=== PATIENT | male | born 1950 | race Caucasian/White ===

== ENCOUNTER 2017-04-20 10:35 | Emergency (ER) | payer MEDICARE, OTHER ==
[~2017-04-20] VITALS: Ht 182.9 cm; Wt 111.1 kg
[~2017-04-20 10:35] MED LIST: AMOX1TAB61 PO; ASPI325T8 PO; ATORVASTATIN CA80 MG PO; BACL10TA PO; BUPR75TA6 PO; CARB1TAB47 PO; CITA40TA5 PO; ENTA200T2 PO; FLUT50DI IH; FOSI40TA PO
--- NOTE | 2017-04-20 11:13 | EKG ---
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
[2017-04-20 11:25] LABS: BASO % 0 % (0-3); EOS # 0.1 x10^3/uL (0.0-0.7); EOS % 1 % (0-3); HEMATOCRIT 39.2 % (39.0-53.0); LYMPH # 4.3 x10^3/uL (1.0-4.8); LYMPH % 37 % (24-48); MEAN CORPUSCULAR HEMOGLOBIN 32 pg (25-35); MEAN CORPUSCULAR HGB CONC 33 g/dL (31-37); MEAN CORPUSCULAR VOLUME 95 fL (79-100); MONO # 1.1 x10^3/uL (0.0-1.1); MONO % 10 % (0-9); NEUT % 52 % (31-73); PLATELET COUNT 208 x10^3/uL (140-400); RED BLOOD COUNT 4.12 x10^6/uL (4.30-5.70); RED CELL DISTRIBUTION WIDTH 13.2 % (11.5-14.5); WHITE BLOOD COUNT 11.6 x10^3/uL (4.0-11.0)
[2017-04-20 11:30] LABS: CALCIUM 8.4 mg/dL (8.5-10.1); CREATININE 1.1 mg/dL (0.7-1.3); GFR 66.6; POTASSIUM 3.4 mmol/L (3.5-5.1)
[2017-04-20] MEDS ORDERED: IBUPROFEN 400 MG TABLET. PO ONE (11:30)
--- NOTE | 2017-04-20 11:46 | RAD ---
Pelvis and bilateral hip radiographs History: Recent fall, pain. Comparison: None. Findings: AP view of the pelvis including both hips. Frog-leg view of each hip. 3 total images. No acute fracture or dislocation is identified. Mild bilateral hip degeneration is seen. Impression: No acute osseous traumatic injury identified.
--- NOTE | 2017-04-20 11:48 | RAD ---
Indication back pain. Recent falls. AP and lateral views of the lumbar spine were obtained as well as a coned view targeted to the lumbosacral junction. There is asymmetric compression associated with L1. The chronicity is uncertain but it is new when compared to an examination 07/21/2011. There are are underlying spondylitic changes. There is multilevel disc space narrowing and there are osteophytes additionally noted at multiple levels. Facet degenerative changes are also seen. Mild scoliosis is noted. IMPRESSION Compression deformity L1 the chronicity of which is not certain. Background spondylitic changes in the lumbar spine are additionally noted
--- NOTE | 2017-04-20 12:00 | PHYS DOC ---
Past History Past Medical History: Diabetes, Hypertension, Other Past Surgical History: No Surgical History Alcohol Use: None Drug Use: None Adult General Chief Complaint Chief Complaint: BACK PAIN OR INJURY HPI HPI 67-year-old male presenting the emergency department today with a fall. He has Parkinson's which has progressively gotten worse. Tomorrow they are installing a lift at his house to help with transfers. This was a mechanical fall and not a syncopal episode. His is here with him today. She complains of low back pain. His pain is mild to moderate radiates bilaterally and is without alleviating factors. It is sharp pain. He denies any chest pain or shortness of breath. Review of systems is negative for acute worsening weakness or tingling in the lower extremities. He denies perineal paresthesias or urinary incontinence. He denies fecal incontinence. All other review of systems is negative unless otherwise noted in history of present illness. ED course: 67-year-old gentleman with worsening Parkinson's disease presenting to the emergency department today with low back pain after a mechanical fall. His pain was controlled in the emergency department. X-rays showed compression fracture of the first lumbar vertebra. Acute vs chronic. We'll have him follow up with his primary care doctor. Clinical presentation not suggestive of cauda equina syndrome. is here with him today is comfortable with discharge back home. Potassium was at the lower end of normal. I recommended he eat a high potassium diet. Also recommended he continue trying to push the fluids as his BUN was mildly elevated likely secondary to prerenal dehydration. There was a nonspecific leukocytosis present however no clinical symptomatology of infection. The patient was then discharged home in stable condition to follow up with their primary care physician over the next 2-3 days. They were to return if their symptoms worsened or if they were concerned for any reason. Face -to-face discharge instructions and return precautions were given. Patient's questions were answered to their satisfaction. Patient and is comfortable plan. Review of Systems Review of Systems SEE ABOVE. Current Medications Current Medications Current Medications Medications (Trade) Dose Ordered Sig/Flex Start Time Stop Time Status Last Admin Dose Admin Ibuprofen (Motrin) 400 mg 1X ONCE 04/20/17 11:30 04/20/17 11:31 DC Allergies Allergies Allergies Coded Allergies Type Severity Reaction Last Updated Verified acetaminophen Allergy Unknown 04/27/14 No morphine Allergy Unknown 04/27/14 No oxycodone Allergy Unknown 04/27/14 No Physical Exam Physical Exam Constitutional: Well developed, well nourished, no acute distress, non-toxic appearance. HENT: Normocephalic, atraumatic, bilateral external ears normal, oropharynx moist, no oral exudates, nose normal. [] Eyes: PERRLA, EOMI, conjunctiva normal, no discharge. Neck: Normal range of motion, no tenderness, supple, no stridor. [] Cardiovascular:Heart rate regular rhythm, no murmur [] Lungs & Thorax: Bilateral breath sounds clear to auscultation Abdomen: Bowel sounds normal, soft, no tenderness, no masses, no pulsatile masses. [] Skin: Warm, dry, no erythema, no rash. Back: Mild tenderness along the paraspinal muscular of the low lumbar back., no CVA tenderness. [] Extremities: No tenderness, no cyanosis, no clubbing, ROM intact, no edema. 5 out of 5 strength in his lower extremities. Neurologic: Alert and oriented X 3, normal motor function, normal sensory function, no focal deficits noted. Psychologic: Affect normal, judgement normal, mood normal. [] Current Patient Data Vital Signs Vital Signs Date Time Temp Pulse Resp B/P (MAP) Pulse Ox O2 Delivery O2 Flow Rate FiO2 04/20/17 10:40 98.5 64 18 94 Room Air Lab Results Laboratory Tests Test 04/20/17 11:06 White Blood Count 11.6 x10^3/uL (4.0-11.0) H Red Blood Count 4.12 x10^6/uL (4.30-5.70) L Hemoglobin 13.0 g/dL (13.0-17.5) Hematocrit 39.2 % (39.0-53.0) Mean Corpuscular Volume 95 fL (79-100) Mean Corpuscular Hemoglobin 32 pg (25-35) Mean Corpuscular Hemoglobin Concent 33 g/dL (31-37) Red Cell Distribution Width 13.2 % (11.5-14.5) Platelet Count 208 x10^3/uL (140-400) Neutrophils (%) (Auto) 52 % (31-73) Lymphocytes (%) (Auto) 37 % (24-48) Monocytes (%) (Auto) 10 % (0-9) H Eosinophils (%) (Auto) 1 % (0-3) Basophils (%) (Auto) 0 % (0-3) Neutrophils # (Auto) 6.0 x10^3uL (1.8-7.7) Lymphocytes # (Auto) 4.3 x10^3/uL (1.0-4.8) Monocytes # (Auto) 1.1 x10^3/uL (0.0-1.1) Eosinophils # (Auto) 0.1 x10^3/uL (0.0-0.7) Basophils # (Auto) 0.0 x10^3/uL (0.0-0.2) Sodium Level 143 mmol/L (136-145) Potassium Level 3.4 mmol/L (3.5-5.1) L Chloride Level 104 mmol/L (98-107) Carbon Dioxide Level 33 mmol/L (21-32) H Anion Gap 6 (6-14) Blood Urea Nitrogen 28 mg/dL (8-26) H Creatinine 1.1 mg/dL (0.7-1.3) Estimated GFR (Cockcroft-Gault) 66.6 Glucose Level 100 mg/dL (70-99) H Calcium Level 8.4 mg/dL (8.5-10.1) L EKG EKG [] Radiology/Procedures Radiology/Procedures [] Course & Med Decision Making Course & Med Decision Making Pertinent Labs and Imaging studies reviewed. (See chart for details) [] Dragon Disclaimer Dragon Disclaimer This chart was dictated in whole or in part using Voice Recognition software in a busy, high-work load, and often noisy Emergency Department environment. It may contain unintended and wholly unrecognized errors or omissions. Departure Departure: Impression: Primary Impression: Acute low back pain due to trauma Additional Impressions: Low blood potassium Compression fracture Disposition: 01 HOME, SELF-CARE Condition: STABLE Referrals: KHRIS URIARTE MD (PCP) Patient Instructions: Back Pain, Adult, Potassium Content of Foods Additional Instructions: Thank you for allowing us to participate in your care today. Followup with your primary care physician in 3 days if your symptoms do not improve. If you do not have a primary care provider you can ask for a list of our primary care providers. Return to the emergency department you have any new or concerning findings. This should be evaluated by the primary care physician and any necessary consulting services for continued management within a few days after discharge. Return to emergency room if you have any new or concerning symptoms including but not limited to fever, chills, nausea, vomiting, intractable pain, any new rashes, chest pain, shortness of air, uncontrolled bleeding, difficulty breathing, and/or vision loss. Problem Qualifiers ODETTE JESSICA MD April 20, 2017 12:00
[2017-04-20] MEDS ORDERED: HYDROmorphone PF 1 MG/ML DISP.SYRIN IM ONE (12:20)
[2017-04-20 13:00] VITALS: BP 142/63
== END 2017-04-20 13:25 | disposition home or self-care (01) ==
LOC: ER 10:35
DX: S32.018A Other fracture of first lumbar vertebra, initial encounter for closed fracture (principal); E11.9 Type 2 diabetes mellitus without complications; G20 Parkinson's disease; I10 Essential (primary) hypertension; Z88.5 Allergy status to narcotic agent; Z88.6 Allergy status to analgesic agent; W19.XXXA Unspecified fall, initial encounter; Y93.89 Activity, other specified; Y99.8 Other external cause status; Y92.89 Other specified places as the place of occurrence of the external cause
CPT/HCPCS: 36415; 72100; 73521; 80048; 85027; 93005; 96372; 99285; J1170

== ENCOUNTER → 2017-06-24 | Outpatient (CLI) | payer MEDICARE, OTHER ==
--- NOTE | 2017-06-24 13:29 | RAD ---
Ultrasound testicular/scrotum 06/24/2017 Clinical indication: Scrotal sac itching and erythema. Comparison: None. Findings: Right testis measures 3.6 x 2.1 x 3.0 cm with homogeneous echotexture. Normal color Doppler imaging of the right testicle with pulsatile spectral Doppler demonstrating arterial and venous waveforms. Left testis measures 2.6 x 1.9 x 4.0 cm with homogeneous echotexture and normal color Doppler imaging. Pulse spectral Doppler analysis demonstrates normal arterial and venous waveforms. Right epididymis normal in appearance. Left epididymis normal in appearance. Impression: Normal testicular sonogram.
== END | disposition home or self-care (01) ==
LOC: US 12:32
PROVIDERS: ATTEND Family Medicine
DX: N50.89 Other specified disorders of the male genital organs (principal); L29.1 Pruritus scroti; L53.8 Other specified erythematous conditions
CPT/HCPCS: 76870

== ENCOUNTER → 2018-02-25 | Outpatient (CLI) | payer MEDICARE, OTHER ==
--- NOTE | 2018-02-26 10:30 | RAD ---
Three-view study of the lumbar spine Clinical indications: Back pain. Comparison: April 20, 2017. Findings: Chronic moderate compression fracture of L1 is seen which is stable. No acute compression fracture or discitis or osteolytic process or anterolisthesis is seen. Dextroscoliosis is seen. There is degenerative endplate spurring and disc space narrowing throughout the lumbar spine. Degenerative facet arthropathy is seen throughout the lumbar spine. IMPRESSION: Stable chronic compression fracture of L1. No new compression fracture is evident.
--- NOTE | 2018-02-26 10:33 | RAD ---
AP view of the pelvis and two-view study of the right hip History: Right hip pain. Pelvic pain. Findings: No acute fracture or dislocation or osteolytic process is seen. No significant arthritic change of the right hip joint is seen. There is a small exostosis of the right femoral neck seen in the frog-leg view. This may be seen with femoral acetabular impingement. IMPRESSION: No acute fracture. See discussion above.
== END | disposition home or self-care (01) ==
LOC: DXRAD 16:00
PROVIDERS: ATTEND Family Medicine
DX: M48.56XD Collapsed vertebra, not elsewhere classified, lumbar region, subsequent encounter for fracture with routine healing (principal); M48.061 Spinal stenosis, lumbar region without neurogenic claudication; M25.551 Pain in right hip
CPT/HCPCS: 72100; 73502

== ENCOUNTER → 2018-03-24 | Outpatient (CLI) | payer MEDICARE, OTHER ==
[~2018-03-24] MED LIST changes: +BUPIVACAINE MPF 0.25% 10 ML VIAL. ONE; +LIDOCAINE 1% PF 30 ML VIAL. ONE
== END | disposition home or self-care (01) ==
LOC: SURG 10:43
PROVIDERS: ATTEND Anesthesiology Pain Medicine
DX: M79.1 Myalgia (principal); M19.90 Unspecified osteoarthritis, unspecified site; K21.9 Gastro-esophageal reflux disease without esophagitis; I10 Essential (primary) hypertension; Z87.39 Personal history of other diseases of the musculoskeletal system and connective tissue
CPT/HCPCS: 20552; J2001; J3490

== ENCOUNTER 2018-08-19 13:34 | Emergency (ER) | payer MEDICARE, OTHER ==
[~2018-08-19 13:34] MED LIST changes: -BUPIVACAINE MPF 0.25% 10 ML VIAL. ONE; -FOSI40TA PO; +FOSI40TA3 PO; -LIDOCAINE 1% PF 30 ML VIAL. ONE
--- NOTE | 2018-08-19 14:23 | PHYS DOC ---
Past History Past Medical History: Diabetes, Hypertension, Other Past Surgical History: No Surgical History Alcohol Use: None Drug Use: None Adult General Chief Complaint Chief Complaint: DIZZY/LIGHT HEADED [facility] HPI 68-year-old male presents the emergency department with multiple complaints. He states that he "just was not feeling well" this morning when he woke up. They had the plan to go to [facility] but he said that he was not feeling well enough. His states that he had multiple episodes of crying spells. He states also that he felt like his shoulders were about to fall off of his body. He then started to feel better and when he got to [facility] he made mention of feeling anxious. When I ask him very directly denies any lightheadedness or room spinning sensation. He denies any headache currently. His does state [facility] why there were 6 boxes of fans on the floor- the states that there was only one fan on the floor that they were looking at buying. While obtaining history from the patient he had about 3 episodes of intense crying. states that this started today. She states that she believes this is because he was given bad news by his neurologist, with respect to his Parkinson's. He was told that his Parkinson's is essentially endstage. Review of Systems Review of Systems Constitutional: Denies fever or chills [] Eyes: Denies change in visual acuity, redness, or eye pain [] HENT: Denies nasal congestion or sore throat [] Respiratory: Denies cough or shortness of breath [] Cardiovascular: No additional information not addressed in HPI [] GI: Denies abdominal pain, nausea, vomiting, bloody stools or diarrhea [] : Denies dysuria or hematuria [] Musculoskeletal: Denies back pain or joint pain [] Integument: Denies rash or skin lesions [] Neurologic: Denies headache, focal weakness or sensory changes [] Endocrine: Denies polyuria or polydipsia [] All other systems were reviewed and found to be within normal limits, except as documented in this note. Allergies Allergies Allergies Coded Allergies Type Severity Reaction Last Updated Verified acetaminophen Allergy Unknown 04/27/14 No morphine Allergy Unknown 04/27/14 No oxycodone Allergy Unknown 04/27/14 No Physical Exam Physical Exam GENERAL: Awake, alert, well appearing, nontoxic HEAD/NECK/EYES: Normocephalic, Neck supple, PERRL ENT Airway patent, mucous membranes moist RESP: Nontachypneic, no respiratory distress, normal breath sounds bilaterally CV: Regular rhythm, normal perfusion ABD/GI: Soft, non-tender, no guarding, no rebound, no palpable pulsatile mass BACK: Inspection NL EXT: Neurovascularly intact, no deformities SKIN: Warm, dry NEURO: Oriented X3, no motor deficits, no sensory deficits, CN II - XII intact, parkinsonian facies PSYCH: Cooperative, appropriate affect, but there are intermittent bouts of tearfulness Current Patient Data Vital Signs Vital Signs Date Time Temp Pulse Resp B/P (MAP) Pulse Ox O2 Delivery O2 Flow Rate FiO2 08/19/18 13:54 98.7 69 20 96 Room Air EKG EKG [] Radiology/Procedures Radiology/Procedures [] Course & Med Decision Making Course & Med Decision Making Pertinent Labs and Imaging studies reviewed. (See chart for details) 3:44 PM. Patient has been asymptomatic outside of episodes of tearfulness. From an emergency department standpoint, he is stable for discharge. I do not suspect any serious bacterial illness, acute ischemic issue or any significant dehydration cannot be treated at home with an increase in oral fluids. His BUNs was mildly elevated and so I did discuss this with his and advised him to drink increased amount of fluids for the next 36 hours. He is currently asymptomatic and stable for discharge. Dragon Disclaimer Dragon Disclaimer This electronic medical record was generated, in whole or in part, using a voice recognition dictation system. Departure Departure: Impression: Primary Impression: Visual hallucination Additional Impressions: Transient alteration of awareness Feeling anxious Disposition: 01 HOME, SELF-CARE Condition: STABLE Referrals: LEXIS AVILA MD (PCP) Problem Qualifiers MAYA SOMERS DO Aug 19, 2018 14:23
[2018-08-19 14:39] LABS: BASO # 0.1 x10^3/uL (0.0-0.2); BASO % 1 % (0-3); EOS # 0.1 x10^3/uL (0.0-0.7); EOS % 1 % (0-3); HEMATOCRIT 40.1 % (39.0-53.0); HEMOGLOBIN 13.5 g/dL (13.0-17.5); LYMPH % 50 % (24-48); MEAN CORPUSCULAR HEMOGLOBIN 32 pg (25-35); MEAN CORPUSCULAR HGB CONC 34 g/dL (31-37); MEAN CORPUSCULAR VOLUME 95 fL (79-100); MONO # 1.1 x10^3/uL (0.0-1.1); MONO % 9 % (0-9); NEUT # 4.7 x10^3uL (1.8-7.7); NEUT % 39 % (31-73); PLATELET COUNT 269 x10^3/uL (140-400); RED BLOOD COUNT 4.23 x10^6/uL (4.30-5.70); RED CELL DISTRIBUTION WIDTH 13.5 % (11.5-14.5)
--- NOTE | 2018-08-19 14:46 | RAD ---
CT HEAD INDICATION: ALTERED MENTAL STATUS. HX OF PARKINSON'S DISEASE, FELT LIKE HIS SHOULDERS WERE GOING TO FALL OFF TODAY COMPARISON: None Available. TECHNIQUE: 5 mm contiguous axial images were obtained from the skull base to the vertex in both bone and soft tissue algorithm. Exposure: One or more of the following individualized dose reduction techniques were utilized for this examination: 1. Automated exposure control 2. Adjustment of the mA and/or kV according to patient size 3. Use of iterative reconstruction technique FINDINGS: Examination limited due to positioning the head within the CT gantry. Mild bilateral periventricular white matter hypodensities likely chronic small vessel ischemic disease. No evidence of acute intracranial hemorrhage. No extra-axial fluid collections. No mass effect or midline shift. Ventricular size is appropriate. Basal cisterns are patent. No fractures identified.Bravo-white differentiation is preserved.Globes and orbits are within normal limits. Paranasal sinuses and mastoid air cells are clear. IMPRESSION: No acute intracranial findings. Electronically signed by: Fly Schaefer MD (08/19/2018 2:42 PM) [id number]
[2018-08-19 14:55] LABS: ALBUMIN 3.4 g/dL (3.4-5.0); ALBUMIN/GLOBULIN RATIO 0.9 (1.0-1.7); CALCIUM 8.5 mg/dL (8.5-10.1); CREATININE 1.2 mg/dL (0.7-1.3); POTASSIUM 4.2 mmol/L (3.5-5.1); TOTAL BILIRUBIN 0.4 mg/dL (0.2-1.0); TOTAL PROTEIN 7.1 g/dL (6.4-8.2)
[2018-08-19 15:02] LABS: BACTERIA,URINE 0 /HPF (0-FEW); BILIRUBIN,URINE NEG (NEG); CLARITY,URINE CLEAR; COLOR,URINE AMBER; GLUCOSE,URINE NEG (NEG); NITRITE,URINE NEG (NEG); RBC,URINE 0 /HPF (0-2); SQUAMOUS EPITHELIAL CELL,UR FEW /LPF; UROBILINOGEN,URINE 0.2 mg/dL (0.2 mg/dL); WBC,URINE OCC /HPF (0-4)
[2018-08-19 16:19] VITALS: BP 184/97
== END 2018-08-19 16:12 | disposition home or self-care (01) ==
LOC: ER 13:34
DX: R44.1 Visual hallucinations (principal); R40.4 Transient alteration of awareness; E11.9 Type 2 diabetes mellitus without complications; I10 Essential (primary) hypertension; F41.9 Anxiety disorder, unspecified; Z88.6 Allergy status to analgesic agent; Z88.5 Allergy status to narcotic agent
CPT/HCPCS: 36415; 70450; 80053; 81001; 85025; 99285

== ENCOUNTER 2022-02-28 16:57 | Emergency (ER) | payer MEDICARE, OTHER ==
[~2022-02-28] VITALS: Ht 182.9 cm; Wt 115.0 kg
[~2022-02-28 16:57] MED LIST changes: -CITA40TA5 PO; +CITA40TA6 PO; -FOSI40TA3 PO; +FOSI40TA52 PO
[2022-02-28 17:30] VITALS: BP 184/88
[2022-02-28] MEDS ORDERED: AMOX1TAB11 PO (18:07)
[2022-02-28] MEDS ORDERED: HYDR-2155 PO (18:07)
--- NOTE | 2022-02-28 18:08 | PHYS DOC ---
Past History Past Medical History: Diabetes, Hypertension, Other (JOCELYN BRADLEY APRN) Past Surgical History: No Surgical History (JOCELYN BRADLEY APRN) Alcohol Use: None Drug Use: None (JOCELYN BRADLEY APRN) General Adult EDM: Chief Complaint: DENTAL PROBLEM HPI: HPI: Patient is a 72-year-old male who presents to the emergency department for dental pain that started 1 month ago that has increased over the last 3 days. Patient has a history of Parkinson's and is wheelchair-bound. 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 She denies fevers, nausea, vomiting. (JOCELYN BRADLEY APRN) Review of Systems: Review of Systems: Constitutional: See HPI HENT: See HPI GI: See HPI (JOCELYN BRADLEY APRN) Allergies: Allergies: Allergies Coded Allergies Type Severity Reaction Last Updated Verified metformin Allergy Unknown 02/28/22 Yes morphine Allergy Unknown 04/27/14 No oxycodone Allergy Unknown 04/27/14 No (JOCELYN BRADLEY APRN) Physical Exam: PE: Constitutional: Well developed, well nourished, no acute distress, non-toxic ap pearance. [] HENT: Normocephalic, atraumatic, bilateral external ears normal, dental caries noted to left lower molar, uvula midline, no trismus, patient has limited ability to open his mouth fully from his Parkinson's, oropharynx moist, no swelling, patient maintaining secretions, no oral exudates, nose normal. [] Eyes: PERRL, EOMI, conjunctiva normal, no discharge. [] Neck: Normal range of motion, no stridor Cardiovascular:Heart rate regular rhythm, no murmur [] Lungs & Thorax: Bilateral breath sounds clear to auscultation [] Abdomen: Bowel sounds normal, soft, no tenderness, no masses, no pulsatile masses. [] Skin: Warm, dry, no erythema, no rash. [] Back: No tenderness, normal range of motion Extremities: No tenderness, no cyanosis, no clubbing, ROM intact, no edema. [] Neurologic: Patient is alert nonverbal Psychologic: Affect normal, judgement normal, mood normal. [] (JOCELYN BRADLEY APRN) EKG: EKG: [] (JOCELYN BRADLEY APRN) Radiology/Procedures: Radiology/Procedures: [] (JOCELYN BRADLEY APRN) Heart Score: C/O Chest Pain: N/A Risk Factors: Risk Factors: DM, Current or recent (<one month) smoker, HTN, HLP, family h istory of CAD, obesity. Risk Scores: Score 0 - 3: 2.5% MACE over next 6 weeks - Discharge Home Score 4 - 6: 20.3% MACE over next 6 weeks - Admit for Clinical Observation Score 7 - 10: 72.7% MACE over next 6 weeks - Early Invasive Strategies (JOCELYN BRADLEY APRN) Course & Med Decision Making: Course & Med Decision Making Pertinent Labs and Imaging studies reviewed. (See chart for details) [] Patient presents to the emergency department for left lower dental pain. He does have dental caries noted to his left lower molar. He will be treated with pain medication and antibiotic and advised to follow-up with his dentist, reports he tolerates hydrocodone. I discussed with patient all findings and diagnostic testing as well as the need to follow-up with PCP for further evaluation and treatment or return to the ER if any new or worsening symptoms. Strict return precautions were also discussed at length. Patient voiced understanding and agreement with the plan. Patient is hemodynamically stable at the time of disposition. (JOCELYN BRADLEY APRN) Course & Med Decision Making Did not see or evaluate patient. Did not discuss patient with DESK TOP PUBLISHER. Generally agree with DESK TOP PUBLISHER's work-up and disposition per note. (FRANCIS ECHEVARRIA MD) Dragon Disclaimer: Dragon Disclaimer: This electronic medical record was generated, in whole or in part, using a voice recognition dictation system. (JOCELYN BRADLEY APRN) Departure Departure: Impression: Primary Impression: Pain due to dental caries Disposition: HOME / SELF CARE / HOMELESS Condition: GOOD Referrals: LEXIS AVILA MD (PCP) Patient Instructions: Dental Caries, Dental Pain Additional Instructions: You are seen in the emergency department today for dental pain. You are noted to have dental caries. You were treated with pain medication and antibiotic. Please start and finish the antibiotic completely. Uses pain medication for severe pain. This medication may cause sedation so do not take when you need to be alert, driving a vehicle or with alcohol. Follow-up with your dentist as soon as possible. Return to the emergency department if you develop worsening of your pain, inability to swallow or maintain your secretions, high fevers refractory to treatment, intractable nausea or vomiting. Scripts Hydrocodone Bit/Acetaminophen (HYDROCODONE-APAP 5-325 ) 1 Each Tablet 1 TAB PO PRN Q6HRS PRN for PAIN for 2 Days, #8 TAB 0 Refills Prov: JOCELYN BRADLEY APRN 02/28/22 Amoxicillin/Potassium Clav (AMOX TR-K CLV 875-125 MG TAB) 1 Each Tablet 1 TAB PO BID for infection for 10 Days, #20 TAB 0 Refills Prov: JOCELYN BRADLEY APRN 02/28/22 JOCELYN BRADLEY APRN Feb 28, 2022 18:08 FRANCIS ECHEVARRIA MD Feb 28, 2022 18:13
== END 2022-02-28 18:28 | disposition home or self-care (01) ==
LOC: ER 16:57
DX: K02.9 Dental caries, unspecified (principal); E11.9 Type 2 diabetes mellitus without complications; I10 Essential (primary) hypertension; Z88.5 Allergy status to narcotic agent; Z88.8 Allergy status to other drugs, medicaments and biological substances
CPT/HCPCS: 99283